=== PATIENT | female | born 1970 | race Two or more races ===

== ENCOUNTER 2019-06-02 14:17 | Outpatient (CLI) | payer OTHER | END 2019-06-02 14:18 | disposition home or self-care (01) | LOC: RAD 14:17 | DX: N60.01 Solitary cyst of right breast (principal); R92.2 Inconclusive mammogram; Z87.410 Personal history of cervical dysplasia; E28.310 Symptomatic premature menopause; N94.4 Primary dysmenorrhea; N92.4 Excessive bleeding in the premenopausal period; N93.8 Other specified abnormal uterine and vaginal bleeding; N84.0 Polyp of corpus uteri; N39.0 Urinary tract infection, site not specified; R39.15 Urgency of urination ==

== ENCOUNTER 2019-06-12 07:40 | Day surgery (SDC) | payer OTHER ==
[2019-06-12] MEDS ORDERED: ZITHROMAX TRI-500 MG PO (14:31)
[2019-06-12] MEDS ORDERED: NAPR500T14 PO (14:31)
== END 2019-06-12 17:30 | disposition home or self-care (01) ==
LOC: CIR.AMB 07:40 → ADM 12:15 → CIR.AMB 13:00
DX: D25.0 Submucous leiomyoma of uterus (principal); N84.0 Polyp of corpus uteri

== ENCOUNTER 2020-09-29 06:00 | Day surgery (SDC) | payer OTHER ==
[~2020-09-29 06:00] MED LIST: NAPR500T14 PO; ZITHROMAX TRI-500 MG PO
== END 2020-09-29 10:20 | disposition home or self-care (01) ==
LOC: AMB-ENDOS 06:00
PROVIDERS: ATTEND Surgery
DX: K63.5 Polyp of colon (principal); Z20.822 Contact with and (suspected) exposure to COVID-19